=== PATIENT | male | born 1950 | race Caucasian/White ===

== ENCOUNTER → 2017-04-23 | Outpatient (CLI) | payer MEDICARE, MEDICAID | LOC: LBETH 13:58 | DX: E11.9 Type 2 diabetes mellitus without complications (principal) ==

== ENCOUNTER → 2017-04-27 | Outpatient (CLI) | payer MEDICARE, MEDICAID | LOC: LBETH 04-25 14:09 | DX: Z12.5 Encounter for screening for malignant neoplasm of prostate (principal) ==